=== PATIENT | female | born 1930 | race Caucasian/White ===

== ENCOUNTER → 2017-01-25 | Outpatient (CLI) | payer OTHER ==
[~2017-01-25] MED LIST: ACET500T76 PO; AZIT250T89 PO; BUDE10.2 INH; CALC1CAP8 PO; CHOL200012 PO; ENAL5TAB PO; FLUT9.9S NS; IPRA4AER INH; LEVO50TA5 PO; MULT-82 PO; PRED20TA PO; VIT1TABL32 PO; VITA150T PO
== END | disposition home or self-care (01) ==
LOC: CARD 12:50
PROVIDERS: ATTEND Internal Medicine Pulmonary Disease
DX: R05 Cough (principal)
CPT/HCPCS: 94060; 94726; 94729

== ENCOUNTER → 2018-09-26 | Outpatient (CLI) | payer MEDICARE ==
[~2018-09-26] MED LIST changes: +ACET500T71 PO; -ACET500T76 PO; -CHOL200012 PO; +CHOL200074 PO; +MULT-224 PO; -MULT-82 PO
== END | disposition home or self-care (01) ==
LOC: CVU 12:47
PROVIDERS: ATTEND Surgery
DX: I70.203 Unspecified atherosclerosis of native arteries of extremities, bilateral legs (principal); I78.1 Nevus, non-neoplastic; R20.0 Anesthesia of skin; C44.90 Unspecified malignant neoplasm of skin, unspecified
CPT/HCPCS: 93922; 93925; 93970

== ENCOUNTER → 2019-01-30 | Outpatient (CLI) | payer MEDICARE ==
[~2019-01-30] MED LIST changes: -MULT-224 PO; +MULT-642 PO
== END | disposition home or self-care (01) ==
LOC: CFH 14:14
PROVIDERS: ATTEND Nurse Practitioner Family
DX: J98.4 Other disorders of lung (principal); M47.814 Spondylosis without myelopathy or radiculopathy, thoracic region; J45.901 Unspecified asthma with (acute) exacerbation
CPT/HCPCS: 71046

== ENCOUNTER 2019-02-01 12:00 | Emergency (ER) | payer MEDICARE ==
[~2019-02-01] VITALS: Ht 160 cm; Wt 57.6 kg
[2019-02-01 12:08] VITALS: BP 175/101
--- NOTE | 2019-02-01 12:29 | NUR ---
FROM LOBBY TO ROOM AT THIS TIME
[2019-02-01] MEDS ORDERED: ALBUTEROL/IPRATROPIUM 2.5MG/0.5MG, 3 ML ONE (12:46)
[2019-02-01 12:51] LABS: BASOPHILS # (AUTO) 0.02 x10^3/uL (0-0.1); BASOPHILS % (AUTO) 0 % (0-1); EOSINOPHILS # (AUTO) 0.02 x10^3/uL (0-0.4); EOSINOPHILS % (AUTO) 0 % (1-7); LYMPHOCYTES % (AUTO) 10 % (22-44); MD NO; MEAN CORPUSCULAR HEMOGLOBIN 29.9 pg (27.0-34.8); MEAN CORPUSCULAR HGB CONC 31.9 g/dL (32.4-35.8); MEAN CORPUSCULAR VOLUME 93.7 fL (80-100); MEAN PLATELET VOLUME 8.6 fL (7.4-10.4); MONOCYTES # (AUTO) 0.24 x10^3/uL (0.2-0.8); MONOCYTES % (AUTO) 3 % (2-9); NEUTROPHILS # (AUTO) 7.67 x10^3/uL (1.8-6.8); NEUTROPHILS % (AUTO) 87 % (42-75); PLATELET COUNT 225 x10^3/uL (130-400); RED CELL DISTRIBUTION WIDTH 13.9 % (9.6-15.2)
[2019-02-01] MEDS ORDERED: ALBUTEROL/IPRATROPIUM 2.5MG/0.5MG, 3 ML NEB ONE (13:00)
[2019-02-01 13:02] LABS: ANION GAP 7 mmol/L (5-15); CALCIUM 8.6 mg/dL (8.5-10.1); CHLORIDE 100 mmol/L (98-107); CREATININE 0.94 mg/dL (0.55-1.02)
[2019-02-01 13:13] LABS: TROPONIN I < 0.015 ng/mL (0.000-0.045)
== END 2019-02-01 14:47 | disposition home or self-care (01) ==
LOC: ED 14:41
DX: J20.9 Acute bronchitis, unspecified (principal); Z86.39 Personal history of other endocrine, nutritional and metabolic disease
CPT/HCPCS: 36415; 71046; 80048; 82040; 83880; 84484; 85025; 93005; 94640; 99284

== ENCOUNTER 2019-02-04 13:31 | Inpatient (IN) | payer MEDICARE ==
[~2019-02-04] VITALS: Ht 160 cm; Wt 61.8 kg
--- NOTE | 2019-02-04 13:53 | NUR ---
PT ASSESSED. C/O CONTINUAL PRODUCTIVE COUGH NOT IMPROVED SINCE LAST VISIT. TRIED HOME INAHLERS WITH LITTLE IMPROVEMENT. UNSURE IF HAVING FEVER. ERP AT BS. WILL CONT TO MONITOR
[2019-02-04] MEDS ORDERED: OXYMETAZOLINE NASAL SPRAY 0.05%, 15ML NAS ONE (14:00)
[2019-02-04] MEDS ORDERED: methylPREDNISolone SOD SUCC 125 MG/2 ML IVP ONE (14:00)
[2019-02-04] MEDS ORDERED: SODIUM CHLORIDE FLUSH 10ML SYR IVF ONE (14:00)
[2019-02-04] MEDS ORDERED: ALBUTEROL/IPRATROPIUM 2.5MG/0.5MG, 3 ML NPPB ONE (14:00)
[2019-02-04] MEDS ORDERED: SODIUM CHLORIDE 0.9% 1,000ML IVBOLUS ONE (14:00)
[2019-02-04] MEDS ORDERED: OXYMETAZOLINE NASAL SPRAY 0.05%,30ML ONE (14:01)
[2019-02-04] MEDS ORDERED: methylPREDNISolone SOD SUCC 125 MG/2 ML ONE (14:04)
[2019-02-04] MEDS ORDERED: ACETAMINOPHEN 500 MG TABLET ONE (14:28)
[2019-02-04] MEDS ORDERED: ACETAMINOPHEN 500 MG TABLET PO ONE (14:30)
[2019-02-04] MEDS ORDERED: ALBUTEROL/IPRATROPIUM 2.5MG/0.5MG, 3 ML ONE (14:37)
[2019-02-04 14:42] LABS: INTERNATIONAL NORMALIZED RATIO 0.96 (0.93-1.1); PROTHROMBIN TIME 10.1 Seconds (9.6-11.5)
[2019-02-04 14:43] LABS: ALANINE AMINOTRANSFERASE 27 U/L (12-78); ALBUMIN 3.9 g/dL (3.4-5.0); ANION GAP 5 mmol/L (5-15); BASOPHILS # (AUTO) 0.02 x10^3/uL (0-0.1); BASOPHILS % (AUTO) 0 % (0-1); CALCIUM 8.8 mg/dL (8.5-10.1); CHLORIDE 107 mmol/L (98-107); CREATININE 0.94 mg/dL (0.55-1.02); EOSINOPHILS # (AUTO) 0.03 x10^3/uL (0-0.4); EOSINOPHILS % (AUTO) 0 % (1-7); LYMPHOCYTES % (AUTO) 8 % (22-44); MEAN CORPUSCULAR HEMOGLOBIN 30.4 pg (27.0-34.8); MEAN CORPUSCULAR HGB CONC 32.7 g/dL (32.4-35.8); MEAN CORPUSCULAR VOLUME 93.1 fL (80-100); MEAN PLATELET VOLUME 8.3 fL (7.4-10.4); MONOCYTES # (AUTO) 0.98 x10^3/uL (0.2-0.8); MONOCYTES % (AUTO) 7 % (2-9); NEUTROPHILS % (AUTO) 85 % (42-75); PLATELET COUNT 265 x10^3/uL (130-400); RED BLOOD COUNT 4.68 x10^6/uL (3.82-5.3)
[2019-02-04 14:44] LABS: MD NO
--- NOTE | 2019-02-04 14:44 | NUR ---
report to daron abebe. Labs sent, medicated as ordered, will cont to monitor
[2019-02-04 14:47] LABS: ALKALINE PHOSPHATASE 59 U/L (45-117); BILIRUBIN,TOTAL 0.4 mg/dL (0.2-1.0); TOTAL PROTEIN 7.7 g/dL (6.4-8.2); TROPONIN I < 0.015 ng/mL (0.000-0.045)
--- NOTE | 2019-02-04 15:18 | NUR ---
Pt given sheet. No additional needs at this time
--- NOTE | 2019-02-04 15:26 | NUR ---
PT REPORTS FEELING MUCH BETTER AFTER BREATHING TMT. UPDATED ON POC, FAMILY AT BS. CALL LIGHT WITHIN REACH, RAILS UP. NO BLEEDING FROM LEFT NARE SINCE AFRIN SPRAY WAS ADMINISTERED
[2019-02-04] MEDS ORDERED: ENAL2.5T32 PO (16:05)
[2019-02-04] MEDS ORDERED: OMNIPAQUE 350 MG/ML, 100ML BOTTLE ONE (16:32)
--- NOTE | 2019-02-04 16:43 | NUR ---
erp at bs discussing results with pt< pending admission
[2019-02-04] MEDS ORDERED: CEFTRIAXONE PMX 1GM/50ML 50 ML ONE (16:48)
[2019-02-04] MEDS ORDERED: CEFTRIAXONE PMX 1GM/50ML 50 ML IV ONE ×2 (17:00→23:30)
[2019-02-04] MEDS ORDERED: AZITHROMYCIN 500 MG in SODIUM CHLORIDE 0.9% 250 ML IV ONE (17:00)
[2019-02-04 17:23] LABS: MICROSCOPIC NOT IND
--- NOTE | 2019-02-04 17:32 | NUR ---
Report to floor ALTAGRACIA Crowley, ready for pt transfer
[2019-02-04 17:38] LABS: CULTURE INDICATED? NO
[2019-02-04 18:07] VITALS: BP 117/75
[2019-02-04 19:24] VITALS: BP 119/68
[2019-02-04] MEDS ORDERED: TRIA80OI TP (22:51)
[2019-02-04] MEDS ORDERED: GABAPENTIN 300 MG CAPSULE PO PRN (23:30)
[2019-02-04] MEDS ORDERED: hydrALAzine 20 MG/ML, 1ML IVPush PRN (23:30)
[2019-02-04] MEDS ORDERED: ACETAMINOPHEN 500 MG TABLET PO PRN (23:30)
[2019-02-04] MEDS ORDERED: DOCUSATE 100 MG CAPSULE PO PRN (23:30)
[2019-02-04] MEDS: methylPREDNISolone SOD SUCC 40 MG/ML IVPush SCH (23:49)
[2019-02-04] MEDS: SODIUM CHLORIDE 0.9% 1,000 ML IV SCH (23:49)
[2019-02-05] MEDS ORDERED: ALBUTEROL/IPRATROPIUM 2.5MG/0.5MG, 3 ML ONE (00:08)
[2019-02-05] MEDS ORDERED: ALBUTEROL/IPRATROPIUM 2.5MG/0.5MG, 3 ML NPPB PRN (00:30)
[2019-02-05 00:40] VITALS: BP 112/63
[2019-02-05] MEDS: TEMAZEPAM 15 MG CAPSULE PO PRN (01:48)
[2019-02-05] MEDS: LEVOTHYROXINE 50 MCG TABLET PO SCH (05:15)
[2019-02-05] MEDS: methylPREDNISolone SOD SUCC 40 MG/ML IVPush SCH ×3 (05:15→17:10)
[2019-02-05 05:56] LABS: MEAN CORPUSCULAR HEMOGLOBIN 30.9 pg (27.0-34.8); MEAN CORPUSCULAR HGB CONC 33.3 g/dL (32.4-35.8); MEAN CORPUSCULAR VOLUME 92.9 fL (80-100); MEAN PLATELET VOLUME 8.3 fL (7.4-10.4); PLATELET COUNT 207 x10^3/uL (130-400); RED BLOOD COUNT 3.78 x10^6/uL (3.82-5.3); RED CELL DISTRIBUTION WIDTH 14.1 % (9.6-15.2)
[2019-02-05 06:05] LABS: ANION GAP 7 mmol/L (5-15); CALCIUM 8.2 mg/dL (8.5-10.1); CHLORIDE 111 mmol/L (98-107); CREATININE 0.86 mg/dL (0.55-1.02)
[2019-02-05 06:22] LABS: BASOPHILS # (AUTO) 0.01 x10^3/uL (0-0.1); BASOPHILS % (AUTO) 0 % (0-1); EOSINOPHILS % (AUTO) 0 % (1-7); LYMPHOCYTES # (AUTO) 0.54 x10^3/uL (1-3.4); LYMPHOCYTES % (AUTO) 4 % (22-44); MD SCAN; MONOCYTES # (AUTO) 0.22 x10^3/uL (0.2-0.8); MONOCYTES % (AUTO) 2 % (2-9); NEUTROPHILS # (AUTO) 12.48 x10^3/uL (1.8-6.8); NEUTROPHILS % (AUTO) 94 % (42-75)
[2019-02-05] MEDS: ALBUTEROL/IPRATROPIUM 2.5MG/0.5MG, 3 ML NPPB SCH ×5 (06:50→22:00)
[2019-02-05] MEDS: BUDESONIDE 0.5 MG/2 ML INHA INH SCH ×2 (06:50→19:01)
[2019-02-05 08:22] VITALS: BP 113/64
[2019-02-05] MEDS: MULTIVITAMIN 1 TABLET PO SCH (08:52)
[2019-02-05] MEDS: CHOLECALCIFEROL 1,000 UNIT TABLET PO SCH (08:52)
[2019-02-05] MEDS: MULTIVITS,STRESS FORMULA 1 TABLET PO SCH (08:53)
[2019-02-05] MEDS: CALCIUM/VITAMIN D3 250-125 TABLET PO SCH (08:53)
[2019-02-05] MEDS: TRIAMCINOLONE CRM 0.025%, 15GM TP SCH ×2 (08:54→21:01)
[2019-02-05] MEDS ORDERED: TEMPLATE NON-FORMULARY MED. (Vit A,C & E/Lutein/Minerals** (Ocuvite Tablet**) 1 TAB) PO SCH (09:00)
[2019-02-05] MEDS: GUAIFENESIN 200 MG TABLET PO SCH ×3 (11:26→21:01)
[2019-02-05 13:57] VITALS: BP 107/65
[2019-02-05] MEDS: SODIUM CHLORIDE 0.9% 1,000 ML IV SCH (15:11)
[2019-02-05] MEDS ORDERED: GUAIFENESIN 200 MG TABLET PO SCH (16:00)
[2019-02-05 16:43] VITALS: BP 113/62
[2019-02-05] MEDS: CEFTRIAXONE PMX 2GM/50ML 50 ML IV SCH (17:31)
[2019-02-05] MEDS: AZITHROMYCIN 500 MG in SODIUM CHLORIDE 0.9% 250 ML IV SCH (18:13)
[2019-02-05 18:55] VITALS: BP 118/69
[2019-02-06] MEDS: methylPREDNISolone SOD SUCC 40 MG/ML IVPush SCH ×3 (00:04→11:43)
[2019-02-06] MEDS: SODIUM CHLORIDE 0.9% 1,000 ML IV SCH ×2 (00:05→08:57)
[2019-02-06 00:19] VITALS: BP 117/67
[2019-02-06 05:42] LABS: BASOPHILS # (AUTO) 0.01 x10^3/uL (0-0.1); BASOPHILS % (AUTO) 0 % (0-1); EOSINOPHILS % (AUTO) 0 % (1-7); LYMPHOCYTES # (AUTO) 0.54 x10^3/uL (1-3.4); LYMPHOCYTES % (AUTO) 4 % (22-44); MD NO; MEAN CORPUSCULAR HEMOGLOBIN 30.1 pg (27.0-34.8); MEAN CORPUSCULAR HGB CONC 31.8 g/dL (32.4-35.8); MEAN CORPUSCULAR VOLUME 94.6 fL (80-100); MEAN PLATELET VOLUME 8.2 fL (7.4-10.4); MONOCYTES # (AUTO) 0.45 x10^3/uL (0.2-0.8); MONOCYTES % (AUTO) 3 % (2-9); NEUTROPHILS % (AUTO) 93 % (42-75); PLATELET COUNT 202 x10^3/uL (130-400); RED BLOOD COUNT 3.61 x10^6/uL (3.82-5.3); RED CELL DISTRIBUTION WIDTH 14.3 % (9.6-15.2)
[2019-02-06] MEDS: LEVOTHYROXINE 50 MCG TABLET PO SCH (05:43)
[2019-02-06 06:04] LABS: CHLORIDE 114 mmol/L (98-107)
[2019-02-06 06:10] LABS: ALANINE AMINOTRANSFERASE 89 U/L (12-78); ALBUMIN 2.7 g/dL (3.4-5.0); ALKALINE PHOSPHATASE 44 U/L (45-117); ANION GAP 6 mmol/L (5-15); BILIRUBIN,TOTAL 0.2 mg/dL (0.2-1.0); CALCIUM 8.2 mg/dL (8.5-10.1); CREATININE 0.66 mg/dL (0.55-1.02); TOTAL PROTEIN 5.4 g/dL (6.4-8.2)
[2019-02-06 06:42] VITALS: BP 127/76
[2019-02-06] MEDS: ALBUTEROL/IPRATROPIUM 2.5MG/0.5MG, 3 ML NPPB SCH ×5 (06:50→23:20)
[2019-02-06] MEDS: BUDESONIDE 0.5 MG/2 ML INHA INH SCH ×2 (06:51→19:05)
[2019-02-06] MEDS: GUAIFENESIN 200 MG TABLET PO SCH ×3 (08:56→20:31)
[2019-02-06] MEDS: MULTIVITS,STRESS FORMULA 1 TABLET PO SCH (08:57)
[2019-02-06] MEDS: CHOLECALCIFEROL 1,000 UNIT TABLET PO SCH (08:57)
[2019-02-06] MEDS: CALCIUM/VITAMIN D3 250-125 TABLET PO SCH (08:57)
[2019-02-06] MEDS: MULTIVITAMIN 1 TABLET PO SCH (08:57)
[2019-02-06] MEDS: TRIAMCINOLONE CRM 0.025%, 15GM TP SCH ×2 (09:00→20:31)
[2019-02-06] MEDS: ENOXAPARIN 40 MG/0.4 ML SQ SCH (13:00)
[2019-02-06 14:00] VITALS: BP 124/72
[2019-02-06] MEDS: BENZONATATE 100 MG CAPSULE PO SCH ×2 (16:26→20:31)
[2019-02-06] MEDS: CEFTRIAXONE PMX 2GM/50ML 50 ML IV SCH (17:44)
[2019-02-06] MEDS: AZITHROMYCIN 500 MG in SODIUM CHLORIDE 0.9% 250 ML IV SCH (18:32)
[2019-02-06 19:38] VITALS: BP 126/77
[2019-02-06] MEDS: TEMAZEPAM 15 MG CAPSULE PO PRN (20:31)
[2019-02-07 02:32] VITALS: BP 119/60
[2019-02-07] MEDS: LEVOTHYROXINE 50 MCG TABLET PO SCH (05:28)
[2019-02-07] MEDS: ALBUTEROL/IPRATROPIUM 2.5MG/0.5MG, 3 ML NPPB SCH ×3 (06:00→14:00)
[2019-02-07] MEDS: BUDESONIDE 0.5 MG/2 ML INHA INH SCH (06:46)
[2019-02-07] MEDS: CHOLECALCIFEROL 1,000 UNIT TABLET PO SCH (07:39)
[2019-02-07] MEDS: CALCIUM/VITAMIN D3 250-125 TABLET PO SCH (07:39)
[2019-02-07] MEDS: MULTIVITAMIN 1 TABLET PO SCH (07:39)
[2019-02-07] MEDS: MULTIVITS,STRESS FORMULA 1 TABLET PO SCH (07:39)
[2019-02-07 07:49] VITALS: BP 147/72
[2019-02-07] MEDS: BENZONATATE 100 MG CAPSULE PO SCH (08:20)
[2019-02-07] MEDS: GUAIFENESIN 200 MG TABLET PO SCH (08:20)
[2019-02-07] MEDS: TRIAMCINOLONE CRM 0.025%, 15GM TP SCH (08:21)
[2019-02-07 11:37] LABS: BASOPHILS # (AUTO) 0.02 x10^3/uL (0-0.1); BASOPHILS % (AUTO) 0 % (0-1); EOSINOPHILS % (AUTO) 0 % (1-7); LYMPHOCYTES # (AUTO) 0.47 x10^3/uL (1-3.4); LYMPHOCYTES % (AUTO) 3 % (22-44); MD NO; MEAN CORPUSCULAR HEMOGLOBIN 28.6 pg (27.0-34.8); MEAN CORPUSCULAR HGB CONC 30.6 g/dL (32.4-35.8); MEAN CORPUSCULAR VOLUME 93.5 fL (80-100); MEAN PLATELET VOLUME 7.3 fL (7.4-10.4); MONOCYTES # (AUTO) 0.69 x10^3/uL (0.2-0.8); MONOCYTES % (AUTO) 5 % (2-9); NEUTROPHILS # (AUTO) 14.19 x10^3/uL (1.8-6.8); NEUTROPHILS % (AUTO) 92 % (42-75); PLATELET COUNT 256 x10^3/uL (130-400); RED BLOOD COUNT 3.82 x10^6/uL (3.82-5.3); RED CELL DISTRIBUTION WIDTH 14.2 % (9.6-15.2)
[2019-02-07 12:17] VITALS: BP 133/68
[2019-02-07] MEDS: ENOXAPARIN 40 MG/0.4 ML SQ SCH (12:37)
[2019-02-07] MEDS ORDERED: AZIT500T5 PO (14:12)
[2019-02-07] MEDS ORDERED: CEFD300C37 PO (14:12)
[2019-02-07] MEDS ORDERED: BENZ-17 PO (14:12)
[2019-02-07] MEDS ORDERED: PRED20TA PO (14:12)
[2019-02-07] MEDS ORDERED: GUAI400T66 PO (14:12)
== END 2019-02-07 15:21 | disposition home or self-care (01) | DRG 871 ==
LOC: ED 14:00 → EDIP 17:26 → 4WST 17:53 → DCLOUNGE 02-07 14:55
PROVIDERS: ADMIT Internal Medicine; ATTEND Internal Medicine
DX: A41.9 Sepsis, unspecified organism (principal); J15.9 Unspecified bacterial pneumonia; E03.9 Hypothyroidism, unspecified; F17.200 Nicotine dependence, unspecified, uncomplicated; H54.7 Unspecified visual loss; I10 Essential (primary) hypertension; I49.3 Ventricular premature depolarization; J45.909 Unspecified asthma, uncomplicated; Z96.641 Presence of right artificial hip joint; R04.0 Epistaxis; Z80.49 Family history of malignant neoplasm of other genital organs; Z90.710 Acquired absence of both cervix and uterus
CPT/HCPCS: 36415; 71045; 71275; 80048; 80053; 81003; 83605; 83735; 83880; 84100; 84145; 84443; 84484; 85025; 85610; 85730; 87040; 87070; 87205; 93005; 94640; 94667; 94668; 99285; G0378; J0456; J0696; J7620; J7626; Q9967; J2920; J2930; J7030; J7050; J7512

== ENCOUNTER → 2019-03-13 | Outpatient (CLI) | payer MEDICARE ==
[~2019-03-13] MED LIST changes: +AZIT500T5 PO; +BENZ-17 PO; +CEFD300C37 PO; +ENAL2.5T32 PO; +GUAI400T66 PO; +TRIA80OI TP
== END | disposition home or self-care (01) ==
LOC: CFH 11:43
PROVIDERS: ATTEND Family Medicine
DX: J98.11 Atelectasis (principal); J18.1 Lobar pneumonia, unspecified organism
CPT/HCPCS: 71046

== ENCOUNTER → 2019-07-20 | Outpatient (CLI) | payer MEDICARE ==
[~2019-07-20] MED LIST changes: +ACET500T64 PO; -ACET500T71 PO; +AZIT500T10 PO; -AZIT500T5 PO
== END | disposition home or self-care (01) ==
LOC: CFH 12:27
PROVIDERS: ATTEND Family Medicine
DX: J98.11 Atelectasis (principal); R91.1 Solitary pulmonary nodule; R93.89 Abnormal findings on diagnostic imaging of other specified body structures; Z85.828 Personal history of other malignant neoplasm of skin; Z80.41 Family history of malignant neoplasm of ovary; Z82.49 Family history of ischemic heart disease and other diseases of the circulatory system
CPT/HCPCS: 71250

== ENCOUNTER → 2019-08-07 | Outpatient (CLI) | payer MEDICARE | END | disposition home or self-care (01) | LOC: CVU 08:49 | PROVIDERS: ATTEND Family Medicine | DX: I73.9 Peripheral vascular disease, unspecified (principal); Z85.828 Personal history of other malignant neoplasm of skin | CPT/HCPCS: 93922 ==

== ENCOUNTER → 2020-02-15 | Outpatient (CLI) | payer MEDICARE ==
[~2020-02-15] MED LIST changes: -GUAI400T66 PO; +GUAI400T81 PO
== END | disposition home or self-care (01) ==
LOC: CVU 12:24
PROVIDERS: ATTEND Internal Medicine Cardiovascular Disease
DX: I08.1 Rheumatic disorders of both mitral and tricuspid valves (principal); I11.0 Hypertensive heart disease with heart failure; I50.33 Acute on chronic diastolic (congestive) heart failure
CPT/HCPCS: 93306

== ENCOUNTER 2020-06-17 12:26 | Outpatient (CLI) | payer MEDICARE ==
[~2020-06-17 12:26] MED LIST changes: -ENAL5TAB PO; +ENAL5TAB10 PO
== END 2020-06-17 23:59 | disposition home or self-care (01) ==
LOC: RAD 12:26 → STAR 23:59
PROVIDERS: ATTEND Internal Medicine Infectious Disease
DX: I45.81 Long QT syndrome (principal)
CPT/HCPCS: 93005

== ENCOUNTER 2020-12-22 14:39 | Emergency (ER) | payer MEDICARE ==
[~2020-12-22] VITALS: Ht 160 cm; Wt 58.6 kg
--- NOTE | 2020-12-22 15:27 | NUR ---
FIRST CONTACT WITH PT. PT C/O SOB/COUGH WITH YELLOW SPUTUM X 3 WEEKS. PT USES INHALER BUT NOT WORKING. PT DENIES FEVER/N/CP. PT'S AOX4. RESPS EVEN AND UNLABORED. ALL MONITORS INPLACE. CALL LIGHT WITHIN REACH.
--- NOTE | 2020-12-22 15:43 | NUR ---
EDMD AT BEDSIDE FOR EVALUATION AT THIS TIME.
[2020-12-22] MEDS ORDERED: ALBUTEROL/IPRATROPIUM 2.5MG/0.5MG, 3 ML NPPB ONE (16:00)
[2020-12-22] MEDS ORDERED: ALBUTEROL/IPRATROPIUM 2.5MG/0.5MG, 3 ML ONE (16:15)
--- NOTE | 2020-12-22 16:20 | NUR ---
PT USING BREATHING TREATMENT AT THIS TIME. PT TOLERATED WELL.
[2020-12-22 16:39] LABS: BASOPHILS % (AUTO) 1 % (0-1); EOSINOPHILS % (AUTO) 11 % (1-7); LYMPHOCYTES % (AUTO) 16 % (22-44); MD NO; MEAN CORPUSCULAR HEMOGLOBIN 30.2 pg (27.0-34.8); MEAN CORPUSCULAR HGB CONC 33.5 g/dL (32.4-35.8); MEAN PLATELET VOLUME 8.3 fL (7.4-10.4); MONOCYTES % (AUTO) 11 % (2-9); NEUTROPHILS % (AUTO) 61 % (42-75); PLATELET COUNT 231 x10^3/uL (130-400); RED BLOOD COUNT 4.18 x10^6/uL (3.82-5.3); RED CELL DISTRIBUTION WIDTH 14.8 % (9.6-15.2)
--- NOTE | 2020-12-22 16:41 | NUR ---
BREATHING TREATMENT IS DONE AT THIS TIME. PT'S AOX4. RESPS EVEN AND UNLABORED.
[2020-12-22 16:44] LABS: ALBUMIN 3.8 g/dL (3.4-5.0); ANION GAP 5 mmol/L (5-15); CALCIUM 9.1 mg/dL (8.5-10.1); CHLORIDE 109 mmol/L (98-107)
[2020-12-22 16:50] LABS: ALANINE AMINOTRANSFERASE 23 U/L (12-78); ALKALINE PHOSPHATASE 53 U/L (45-117); BILIRUBIN,TOTAL 0.4 mg/dL (0.2-1.0); CREATININE 0.94 mg/dL (0.55-1.02); TOTAL PROTEIN 7.3 g/dL (6.4-8.2)
[2020-12-22 17:06] VITALS: BP 112/52
--- NOTE | 2020-12-22 18:05 | NUR ---
Patient given discharge instructions and they have confirmed that they understand the instructions. Patient ambulatory with steady gait.
== END 2020-12-22 18:06 | disposition home or self-care (01) ==
LOC: ED 17:45
DX: J20.9 Acute bronchitis, unspecified (principal); R00.0 Tachycardia, unspecified; R06.02 Shortness of breath; Z86.39 Personal history of other endocrine, nutritional and metabolic disease
CPT/HCPCS: 36415; 71045; 80053; 83605; 83880; 85025; 87040; 93005; 94640; 99285; J7512